=== PATIENT | female | born 1985 | race African-American/Black ===

== ENCOUNTER 2019-11-12 07:53 | Emergency (ER) | payer BC ==
--- NOTE | 2019-11-12 07:58 | ED Physician Documentation ---
PD HPI HEENT - Stated complaint Stated Complaint: R EAR PX - History obtained from History obtained from: Patient - History of Present Illness Timing - onset: How many days ago (several) Timing - duration: Days (several) Timing - details: Gradual onset, Still present Location: Right ear (having some pressure/pain and decdreased hearing in the ear.) Worsens: Position Associated symptoms: No: Fever Similar symptoms before: Has not had sx before Recently seen: Not recently seen Review of Systems Constitutional: denies: Fever Ears: reports: Loss of hearing, Ear pain. denies: Drainage/discharge, Tinn itus/ringing Nose: denies: Rhinorrhea / runny nose, Congestion Throat: denies: Sore throat Respiratory: denies: Cough Neurologic: denies: Altered mental status, Headache PD PAST MEDICAL HISTORY - Past Medical History Past Medical History: No - Present Medications Home Medications: Ambulatory Orders Medication Instructions Recorded Confirmed Cephalexin [Keflex] 500 mg PO TID #20 capsule 11/12/19 Cetirizine [ZyrTEC] 10 mg PO DAILY #15 tablet 11/12/19 Ciprofloxacin/Hydrocortisone 3 drops RIGHTEAR TID 5 Days #1 11/12/19 [Cipro Hc Otic Suspension] bottle - Allergies Allergies/Adverse Reactions: Allergies Allergy/AdvReac Type Severity Reaction Status Date / Time No Known Drug Allergies Allergy Verified 11/12/19 08:03 PD ED PE NORMAL - Vitals Vital signs reviewed: Yes - General General: Alert and oriented X 3, No acute distress, Well developed/nourished - HEENT HEENT: Moist mucous membranes, Pharynx benign, Other (left canal and TM normal. Right TM with fluid and some redness behind the TM. Canal with some mild exudate and redness but no canal swelling. ) Results - Vitals Vitals: Vital Signs - 24 hr 11/12/19 08:01 Temperature 36.0 C L Heart Rate 71 Respiratory 16 Rate Blood Pressure 111/71 O2 Saturation 100 Oxygen O2 Source Room air Departure - Departure Disposition: 01 Home, Self Care Clinical Impression: Otitis media Qualifiers: Otitis media type: suppurative Chronicity: acute Laterality: right Recurrence: non-recurrent Spontaneous tympanic membrane rupture: without spontaneous rupture Qualified Code(s): H66.001 - Acute suppurative otitis media without spontaneous rupture of ear drum, right ear Condition: Stable Record reviewed to determine appropriate education?: Yes Instructions: ED Otitis Media Acute Adult Prescriptions: Ciprofloxacin/Hydrocortisone [Cipro Hc Otic Suspension] 3 drops RIGHTEAR TID 5 Days #1 bottle Cephalexin [Keflex] 500 mg PO TID #20 capsule Cetirizine [ZyrTEC] 10 mg PO DAILY #15 tablet Comments: Main problem seems to be infection around the eardrum and fluid behind it. Treat that with the cephalexin and cetirizine. Tylenol ibuprofen if needed for pains. It does seem to be some irritation of the ear canal as well but not enough to really be causing your difficulty hearing. You can use some Cipro/steroid eardrops a few times a day for the next 5 days for that as well. Discharge Date/Time: 11/12/19 08:29
[2019-11-12 08:03] VITALS: BP 111/71
[2019-11-12] MEDS ORDERED: CETIRIZINE 10 MG TABLET PO STA (08:16)
[2019-11-12] MEDS ORDERED: cephALEXin 250 MG CAPSULE PO STA (08:16)
== END 2019-11-12 08:29 | disposition home or self-care (01) ==
LOC: ED 07:53
DX: H66.001 Acute suppurative otitis media without spontaneous rupture of ear drum, right ear (principal)
CPT/HCPCS: 99283; A9270

== ENCOUNTER 2021-03-06 08:00 | Outpatient (CLI) | payer BC ==
[2021-03-06 18:18] LABS: BASOPHILS # (AUTO) 0.1 10^3/uL (0.0-0.1); BASOPHILS % (AUTO) 0.9 %; EOSINOPHILS # (AUTO) 0.2 10^3/uL (0.0-0.7); EOSINOPHILS % (AUTO) 2.9 %; HCT - HEMATOCRIT 40.7 % (37.0-47.0); HGB - HEMOGLOBIN 13.3 g/dL (12.0-16.0); LYMPHOCYTES % (AUTO) 27.9 %; MEAN CORPUSCULAR HEMOGLOBIN 29.2 pg (27.0-31.0); MEAN CORPUSCULAR HGB CONC 32.7 g/dL (32.0-36.0); MEAN CORPUSCULAR VOLUME 89.5 fL (81.0-99.0); MEAN PLATELET VOLUME 11.6 fL (7.9-10.8); MONOCYTES # (AUTO) 0.8 10^3/uL (0.0-1.0); MONOCYTES % (AUTO) 10.7 %; NEUTROPHILS % (AUTO) 57.5 %; PLT - PLATELET COUNT 290 10^3/uL (130-450); RED BLOOD COUNT 4.55 10^6/uL (4.20-5.40); RED CELL DISTRIBUTION WIDTH 13.4 % (12.0-15.0)
[2021-03-06 18:46] LABS: ALBUMIN/GLOBULIN RATIO 1.1 (1.0-2.2); ALKALINE PHOSPHATASE 62 IU/L (42-121); ALT ALANINE AMINOTRANSFERASE 21 IU/L (10-60); AST ASPARTATE AMINOTRANSFERASE 20 IU/L (10-42); BILIRUBIN,TOTAL 0.4 mg/dL (0.2-1.0); BUN - BLOOD UREA NITROGEN 18 mg/dL (6-20); CALCIUM 9.3 mg/dL (8.5-10.3); CARBON DIOXIDE - CO2 27 mmol/L (21-32); CHLORIDE 102 mmol/L (101-111); CHOLESTEROL 284 mg/dL; GFR - MDRD 76 (>89); GLUCOSE 102 mg/dL (70-100); HDL CHOLESTEROL 47 mg/dL; LDL CHOLESTEROL,CALCULATED 214 mg/dL; LDL/HDL RATIO 4.6 (<4.4); POTASSIUM 4.1 mmol/L (3.5-5.0); SODIUM 138 mmol/L (135-145); TOTAL PROTEIN 7.5 g/dL (6.7-8.2); TRIGLYCERIDES 116 mg/dL; VLDL CHOLESTEROL 23 mg/dL
[2021-03-06 18:47] LABS: THYROID STIMULATING HORMONE 1.34 uIU/mL (0.34-5.60)
[2021-03-06 21:07] LABS: ESTIMATED AVERAGE GLUCOSE 105 mg/dL (70-100); HEMOGLOBIN A1c% 5.3 % (4.27-6.07)
== END 2021-03-06 23:59 ==
LOC: LAB.WCP 08:00
PROVIDERS: ATTEND Physician Assistant
DX: Z00.00 Encounter for general adult medical examination without abnormal findings (principal)
CPT/HCPCS: 36415; 80053; 80061; 83036; 83721; 84443; 85025

== ENCOUNTER 2021-04-21 07:21 | Outpatient (CLI) | payer BC ==
--- NOTE | 2021-04-21 09:32 | Ultrasound Report ---
PROCEDURE: Pelvic w/Transvaginal INDICATIONS: MENORRHAGIA TECHNIQUE: Real-time scanning was performed of the pelvic organs, with image documentation. Additional endovagi nal scanning was necessary due to incomplete visualization of the adnexal and endometrial structures by transabdominal scanning. COMPARISON: None. FINDINGS: No pathologic free abdominal or pelvic fluid. Uterus: Uterus is normal in size at 8.3 x 4.3 x 4.1 cm. The endometrium measures 8 mm in combined t hickness. There is a possible vascular focus noted within the posterior endometrium of the uterine f undus measuring approximately 1.0 x 0.7 cm in size with associated vascularity. A definite mass/polyp not able to be determined. There is also a subserosal fibroid noted in the anterior aspect of the ut erus, right side measuring 2.6 x 2.4 x 3.0 cm. Homogeneous uterine echotexture. Ovaries: Both ovaries are normal. Right ovary measures 3.4 x 2.5 x 2.7 cm with ovarian volume of 11. 8 mL. Left ovary measures 3.0 x 2.8 x 1.5 cm with ovarian volume of 6.7 mL. IMPRESSION: 1. Possible 1.0 cm endometrial polyp versus small vessel. There is persistent clinical concern, consi jae further evaluation with direct visualization/hysteroscopy. 2. Small subserosal uterine fibroid. 3. Normal sonographic appearance of the bilateral ovaries. Reviewed by: Efrem Singh MD on 04/21/2021 8:30 AM [facility] Approved by: Efrem Singh MD on 04/21/2021 8:30 AM [facility] Station ID: [id number]
== END 2021-04-21 07:22 | disposition home or self-care (01) ==
LOC: DI 07:21
PROVIDERS: ATTEND Obstetrics & Gynecology
DX: D25.2 Subserosal leiomyoma of uterus (principal); N92.0 Excessive and frequent menstruation with regular cycle

== ENCOUNTER 2021-07-15 07:54 | Outpatient (CLI) | payer BC ==
[2021-07-15 08:04] LABS: BASOPHILS # (AUTO) 0.1 10^3/uL (0.0-0.1); BASOPHILS % (AUTO) 0.9 %; EOSINOPHILS # (AUTO) 0.2 10^3/uL (0.0-0.7); EOSINOPHILS % (AUTO) 3.6 %; HCT - HEMATOCRIT 41.8 % (37.0-47.0); HGB - HEMOGLOBIN 13.5 g/dL (12.0-16.0); LYMPHOCYTES # (AUTO) 1.9 10^3/uL (1.5-3.5); MEAN CORPUSCULAR HGB CONC 32.3 g/dL (32.0-36.0); MEAN CORPUSCULAR VOLUME 89.9 fL (81.0-99.0); MEAN PLATELET VOLUME 10.8 fL (7.9-10.8); MONOCYTES # (AUTO) 0.7 10^3/uL (0.0-1.0); MONOCYTES % (AUTO) 10.2 %; NEUTROPHILS # (AUTO) 3.5 10^3/uL (1.5-6.6); PLT - PLATELET COUNT 265 10^3/uL (130-450); RED BLOOD COUNT 4.65 10^6/uL (4.20-5.40); RED CELL DISTRIBUTION WIDTH 13.5 % (12.0-15.0); WHITE BLOOD COUNT 6.4 x10^3/uL (4.8-10.8)
== END 2021-07-15 07:55 | disposition home or self-care (01) ==
LOC: LAB 07:54
PROVIDERS: ATTEND Obstetrics & Gynecology
DX: Z01.812 Encounter for preprocedural laboratory examination (principal); N93.9 Abnormal uterine and vaginal bleeding, unspecified; N84.0 Polyp of corpus uteri
CPT/HCPCS: 36415; 85025; 86850; 86900; 86901

== ENCOUNTER 2021-07-16 05:56 | Day surgery (SDC) | payer BC ==
[2021-07-16 06:48] LABS: HCG UR QUAL NEGATIVE
[2021-07-16] MEDS ORDERED: LACTATED RINGERS 1,000 ML IV ONE ×2 (07:10→08:26)
[2021-07-16] MEDS ORDERED: PROPOFOL 200 MG/20 ML VIAL IVP ONE (07:11)
[2021-07-16] MEDS ORDERED: LIDOCAINE-MPF 2% 5 ML VIAL ONE (07:12)
[2021-07-16] MEDS ORDERED: fentaNYL 100 MCG/2 ML VIAL ONE (07:13)
[2021-07-16] MEDS ORDERED: MIDAZOLAM 2 MG/2 ML VIAL ONE (07:13)
[2021-07-16] MEDS ORDERED: SEVOFLURANE 250 ML LIQUID INH ONE (07:16)
[2021-07-16] MEDS ORDERED: BUPIVACAINE 0.25% PF 10 ML VIAL ONE ×2 (07:22→07:39)
[2021-07-16] MEDS ORDERED: LIDOCAINE MPF 2%-EPI 1:200000 20 ML VIAL ONE ×2 (07:22→07:39)
[2021-07-16] MEDS ORDERED: METOCLOPRAMIDE 10 MG/2 ML VIAL IVP PRN (07:24)
[2021-07-16] MEDS ORDERED: NALOXONE 0.4 MG/ML VIAL IVP PRN (07:24)
[2021-07-16] MEDS ORDERED: fentaNYL 100 MCG/2 ML VIAL IVP PRN (07:24)
[2021-07-16] MEDS ORDERED: ONDANSETRON 4 MG/2 ML VIAL IVP PRN (07:24)
[2021-07-16] MEDS ORDERED: ePHEDrine 50 MG/ML VIAL IVP PRN (07:24)
[2021-07-16] MEDS ORDERED: MORPHINE 2 MG/ML CARPUJECT IVP PRN (07:24)
[2021-07-16] MEDS ORDERED: HYDROmorphone 0.5 MG/0.5 ML SYRINGE IVP PRN (07:24)
[2021-07-16] MEDS ORDERED: ATROPINE ABBOJECT 1 MG/10 ML SYRINGE IVP PRN (07:24)
--- NOTE | 2021-07-16 07:24 | ANESTHESIA ---
Pre-Anesthesia VS, & Labs - Diagnosis abnormal uterine bleeding - Procedure hysteroscopy, d&c, polypectomy Vital Signs: Temp Pulse Resp BP Pulse Ox 36 C L 65 16 136/81 H 97 07/16/21 06:34 07/16/21 06:34 07/16/21 06:34 07/16/21 06:34 07/16/21 06:34 Height: 5 ft 5 in Weight (kg): 132.3 kg Body Mass Index: 48.5 BMI Classification: Morbidly Obese - NPO >8 hours - Is Patient ?: No Home Medications and Allergies Home Medications: Ambulatory Orders Fexofenadine [Kori] 60 mg PO DAILY 07/08/21 Fexofenadine [Kori] 60 mg PO DAILY 07/08/21 Allergies/Adverse Reactions: Allergies Allergy/AdvReac Type Severity Reaction Status Date / Time No Known Drug Allergies Allergy Verified 11/12/19 08:03 Anes History & Medical History - Anesthetic History Anesthesia Complications: reports: No previous complications - Medical History Cardiovascular: reports: None Pulmonary: reports: None Gastrointestinal: reports: None Urinary: reports: None Musculoskeletal: reports: None Endocrine/Autoimmune: reports: None Skin: reports: None History of Cancer?: No - Surgical History Eyes Ears Nose Throat (EENT): reports: Tonsil/Adenoidectomy Exam General: Alert, Oriented x3, Cooperative Dental: WNL Mouth Opening: Greater than 4 Fingerbreadths Neck Mobility: Normal Mallampati classification: II Respiratory: Lungs clear Cardiovascular: Regular rate Plan Anesthesia Type: General Consent for Procedure(s) Verified and Reviewed: Yes Code Status: Attempt Resuscitation ASA classification: 2-Mild systemic disease Is this case an emergency?: No
[2021-07-16] MEDS ORDERED: LACTATED RINGERS 1,000 ML IV SCH (08:00)
[2021-07-16] MEDS ORDERED: DEXAMETHASONE 4 MG/ML VIAL ONE (08:02)
[2021-07-16] MEDS ORDERED: KETOROLAC 30 MG/ML VIAL ONE (08:02)
[2021-07-16] MEDS ORDERED: ONDANSETRON 4 MG/2 ML VIAL ONE (08:02)
[2021-07-16] MEDS ORDERED: LIDOCAINE MPF 2%-EPI 1:200000 20 ML VIAL SUBQ ONE ×2 (08:04)
[2021-07-16] MEDS ORDERED: BUPIVACAINE 0.25% PF 10 ML VIAL SUBQ ONE ×2 (08:04)
[2021-07-16] MEDS ORDERED: HYDROcod/ACETAM 5/325 MG TABLET PO PRN (08:24)
[2021-07-16] MEDS ORDERED: SUGAMMADEX 200 MG/2 ML VIAL IVP ONE (08:26)
--- NOTE | 2021-07-16 08:29 | OPERATIVE REPORT ---
Operative Report - General Planned Procedure: Hysteroscopy, D&C, polypectomy Pre-Op Diagnosis: Abnormal uterine bleeding-polyp, endometrial polyp Procedure Performed: Hysteroscopy, D&C, polypectomy Post Op Diagnosis: Abnormal uterine bleeding-polyp, endometrial polyp - Procedure Note Primary Surgeon: Deyvi Sales MD Anesthesia Provider: Jie Wagner CRNA Anesthesia Technique: General ET tube Pathology: Endometrial polyp IV Fluids (mL): 750 Estimated Blood Loss (mL): 5 Complications: None - Other Other Information/Narrative: Patient was taken to the procedure room and placed in dorsal lithotomy position. Hibiclens was used to clean the operative area. [place] speculum was palced in the vagina and the cervix was visualized. The anterior lip the cervix was grasped with a single-tooth tenaculum. The cervix was non-stenotic and allowed the easy passage of dilators. Hysteroscope was then used to hydrodilate using normal saline distention media. Hysteroscope was advanced without difficulty using hydrodistention. Cervical canal was noted to be without abnormality. Upon entry into the internal cervical os there was noted to be an endometrial polyp taking up most of the uterus. The MyoSure device was then placed and the polyp was shaved away. As the polyp was removed, it appeared to be originating from the posterior wall of the uterus. After the polyp was removed, bilateral tubal ostia were noted. Hysteroscope was then removed. Tenaculum was then removed from the cervix noted to be hemostatic. All instruments removed from the vagina Fluid deficit 100 mL.
--- NOTE | 2021-07-16 08:47 | ANESTHESIA POST OP EVALUATION ---
Anesthesia Post Eval - Post Anesthesia Eval Vitals: Last Vital Signs Temp 36 C L 07/16/21 08:40 Pulse 74 07/16/21 08:40 Resp 20 07/16/21 08:40 BP 119/84 H 07/16/21 08:40 Pulse Ox 97 07/16/21 08:40 CV Function Including HR & BP: Stable Pain Control: Satisfactory Nausea & Vomiting: Negative Mental Status: Baseline Respiratory Status: Airway Patent Hydration Status: Satisfactory Anesthesia Complications: None
[2021-07-16 09:45] VITALS: BP 118/78
== END 2021-07-16 05:57 | disposition home or self-care (01) ==
LOC: SDS 05:56
PROVIDERS: ATTEND Obstetrics & Gynecology
PROC: 0UDB8ZZ Extraction of Endometrium, Via Natural or Artificial Opening Endoscopic (ICD-10-PCS; 2021-07-16)
PROC: 0UB98ZZ Excision of Uterus, Via Natural or Artificial Opening Endoscopic (ICD-10-PCS; principal; 2021-07-16 07:30)
DX: N93.9 Abnormal uterine and vaginal bleeding, unspecified (principal); N84.0 Polyp of corpus uteri; E66.01 Morbid (severe) obesity due to excess calories; Z68.42 Body mass index [BMI] 45.0-49.9, adult
CPT/HCPCS: 58558; 81025; J3490; J7120